=== PATIENT | male | born 1945 | race Caucasian/White ===

== ENCOUNTER 2020-02-17 12:30 | Emergency (ER) | payer MEDICARE, BC ==
[~2020-02-17] VITALS: Ht 160 cm; Wt 73.5 kg
--- NOTE | 2020-02-17 12:45 | NUR ---
ED Nurse Note: Pt ambulated to ED from home d/t multiple falls today at home. Pt is AOx4, denies any head trauma. Per pt he has hx of back surgery. Pt had a fall at the garage and bathroom. Pt arrived with bandages on bilateral forearms and stated, "he wants his bandages to be check and replaced." VSS, on RA, afebrile on triage.
[2020-02-17 12:50] VITALS: BP 145/74
[2020-02-17] MEDS ORDERED: Bacitracin Oint UD TOPIC ONE ×2 (13:00→13:15)
[2020-02-17] MEDS ORDERED: BACITRACIN15 GM TOPIC ×2 (14:01→14:20)
[2020-02-17 14:25] VITALS: BP 144/72
--- NOTE | 2020-02-17 14:25 | NUR ---
ER DISCHARGE NOTE: Pt is cleared to be discharged per ERMD, pt is aox4, on room air, with stable vital signs. pt was given dc and prescription instructions, pt was able to verbalize understanding, pt id band removed. pt is able to ambulate with steady gait. pt took all belongings.
--- NOTE | 2020-02-17 14:49 | Emergency Room Report ---
History of Present Illness General Chief Complaint: Multiple Trauma/Fall Source: Patient Present Illness HPI 74-year-old male presents with abrasions to his elbows status post fall today. States he had a mechanical fall in his garage. Denies hitting his head or LOC. States that he has history of frequent falls. Denies pain. States that he has very thin skin and he needs bandaging and wound care. Denies taking blood thinners. Denies any nausea vomiting. Denies any abdominal pain. Denies any back pain. No other aggravating relieving factors. 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 Patient History Past Medical History: none Past Surgical History: other - Back surgery Pertinent Family History: none Social History: Denies: smoking, alcohol use, drug use Immunizations: UTD Reviewed Nursing Documentation: PMH: Agreed; PSxH: Agreed Nursing Documentation-PMH Past Medical History: No History, Except For Review of Systems All Other Systems: negative except mentioned in HPI Physical Exam Vital Signs Date Time Temp Pulse Resp B/P (MAP) Pulse Ox O2 Delivery O2 Flow Rate FiO2 02/17/20 12:38 97.9 63 16 145/74 (97) 95 Room Air Sp02 EP Interpretation: reviewed, normal General Appearance: no apparent distress, alert, GCS 15, non-toxic Head: normocephalic Eyes: bilateral eye normal inspection, bilateral eye PERRL ENT: normal ENT inspection Neck: normal inspection Respiratory: normal inspection Cardiovascular #1: normal inspection Gastrointestinal: normal inspection Rectal: deferred Genitourinary: no CVA tenderness Musculoskeletal: back normal, normal range of motion, gait/station normal, non- tender Neurologic: alert, motor strength/tone normal, oriented x3, sensory intact, responsive, speech normal Psychiatric: judgement/insight normal, memory normal, mood/affect normal, no suicidal/homicidal ideation Skin: other - skin tears to bilateral elbows Lymphatic: normal inspection Medical Decision Making Diagnostic Impression: Primary Impression: Skin tear Additional Impression: Multiple injuries due to trauma ER Course Hospital Course 74-year-old male presents with skin tears to bilateral elbow status post fall. No pain Clinical course Patient placed on stretcher. After initial history exam reveals elderly male no acute distress. There are skin tears noted to both elbows. Full range of motion noted. No crepitus or bruising. No tenderness. Patient states that this happens often. History of frequent falls. Declines lab draw. Declines imaging including x-rays or CT head. Declines pain meds. Wounds cleaned. Bacitracin and dressing applied. Safe for discharge and close outpatient follow-up. States he has a PMD Diagnosis -skin tear, multiple injuries due to trauma Stable and discharged to home with prescription for bacitracin. wound Care instructions given. Followup with PMD. Return to ED if any signs of infection develop Last Vital Signs Date Time Temp Pulse Resp B/P (MAP) Pulse Ox O2 Delivery O2 Flow Rate FiO2 02/17/20 12:50 97.9 16 145/74 95 Room Air 02/17/20 12:50 63 Status: improved Disposition: HOME, SELF-CARE Condition: Stable Scripts Bacitracin (Bacitracin) 28.4 Gm Oint...g. 1 APPLIC TOPIC THREE TIMES A DAY, #28.4 GM Prov: Luciano Padilla MD 02/17/20 Patient Instructions: Skin Tear Care, [id number] Luciano Padilla MD Feb 17, 2020 14:49
== END 2020-02-17 14:25 | disposition home or self-care (01) ==
LOC: EMR 13:55
DX: S51.012A Laceration without foreign body of left elbow, initial encounter (principal); S51.011A Laceration without foreign body of right elbow, initial encounter; W19.XXXA Unspecified fall, initial encounter; Y92.094 Garage of other non-institutional residence as the place of occurrence of the external cause; Z91.81 History of falling
CPT/HCPCS: 99282

== ENCOUNTER → 2020-04-14 | Outpatient (CLI) | payer MEDICARE, BC ==
[~2020-04-14] MED LIST: BACITRACIN15 GM TOPIC
[2020-04-14 12:10] LABS: HEMATOCRIT 44.9 % (42.0-52.0); MEAN CORPUSCULAR VOLUME 93 FL (80-99); PLATELET COUNT 84 K/UL (150-450); RED BLOOD COUNT 4.84 M/UL (4.70-6.10); RED CELL DISTRIBUTION WIDTH 13.4 % (11.6-14.8); WHITE BLOOD COUNT 4.3 K/UL (4.8-10.8)
[2020-04-14 12:37] LABS: ALANINE AMINOTRANSFERASE 74 U/L (12-78); ALBUMIN 3.2 G/DL (3.4-5.0); ALBUMIN/GLOBULIN RATIO 1.1 (1.0-2.7); ALKALINE PHOSPHATASE 146 U/L (46-116); ANION GAP 6 mmol/L (5-15); ASPARTATE AMINO TRANSFERASE 40 U/L (15-37); BILIRUBIN,TOTAL 0.7 MG/DL (0.2-1.0); BLOOD UREA NITROGEN 40 mg/dL (7-18); CALCIUM 8.8 MG/DL (8.5-10.1); CARBON DIOXIDE 27 MMOL/L (21-32); CHLORIDE 109 MMOL/L (98-107); POTASSIUM 4.5 MMOL/L (3.5-5.1); SODIUM 142 MMOL/L (136-145)
--- NOTE | 2020-04-14 13:15 | Diagnostic Imaging Report ---
Indication: Abdominal pain and distention Technique: Boyer-scale and duplex images of the upper abdomen were obtained Comparison: Findings: Gallbladder is unremarkable, without stones, wall thickening, nor pericholecystic fluid. Sonographic Aguirre's sign is negative. Common bile duct measures 3 mm in diameter. No intrahepatic biliary ductal dilatation. Liver demonstrates some surface nodularity. It demonstrates coarsened echogenicity. No focal abnormality. Portal vein and hepatic veins are patent. Pancreas is unremarkable. The spleen is mildly enlarged, measuring 13.5 cm long axis dimension. Left kidney measures 10.4 cm in length. Right kidney measures 10.8 cm length. Both kidneys demonstrate normal echogenicity. There is no hydronephrosis. Cysts are seen in both kidneys. There may be a small calculus in the right renal sinus . Non-aneurysmal abdominal aorta . Impression: Coarsened hepatic echogenicity. Surface nodularity suggests cirrhotic change Splenomegaly Negative for gallstones or dilated bile ducts Possible right renal sinus nonobstructive calyceal calculus
== END | disposition home or self-care (01) ==
LOC: ULS 10:56
DX: R10.9 Unspecified abdominal pain (principal); R14.0 Abdominal distension (gaseous); R16.1 Splenomegaly, not elsewhere classified; N20.0 Calculus of kidney
CPT/HCPCS: 36415; 76700; 80053; 82105; 85007; 85025; 85610; 85730

== ENCOUNTER 2020-09-22 09:31 | Inpatient (IN) | payer MEDICARE, BC ==
[~2020-09-22] VITALS: Ht 162.6 cm; Wt 83.0 kg
[2020-09-22 09:52] VITALS: BP 127/49
--- NOTE | 2020-09-22 10:05 | NUR ---
ED Nurse Note: pt states he was reaching for something, fell and arm got caught on cabinet last night. pt states profuse bleeding last night. bleeding minimal on arrival pt states pain 6/10, refusing pain medication. pt presents with skin tear on R upper outer arm, extensive purple hematoma to R outer arm with swelling, deep laceration in R axillary region, skin tear, muscle and ligaments visible. pt able to move extremity with some difficulty and assistance. R shoulder pain with movement. pt resting in bed. IV in places. labs sent. pt placed on cardiac & O2 monitor continuously.
[2020-09-22] MEDS ORDERED: ceFAZolin sod 1 GM in NS 55 ML IVPB ONE (10:15)
[2020-09-22] MEDS ORDERED: Tetanus/Diptheria/Pertussis IM ONE (10:15)
--- NOTE | 2020-09-22 10:40 | Emergency Room Report ---
History of Present Illness General Chief Complaint: Shoulder Injury Source: Patient Present Illness HPI 74-year-old male presents for evaluation. States that he cut his arm yesterday while reaching for something and then his arm fell onto something wooden. Has a large cut under his axilla and to the right arm. Happened yesterday afternoon. Tetanus unknown. Denies any other injuries. Pain is dull, 6 out of 10, nonradiating. No other aggravating relieving factors. 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 Patient History Past Medical History: other - cancer Past Surgical History: none Pertinent Family History: none Social History: Denies: smoking, alcohol use, drug use Immunizations: UTD Reviewed Nursing Documentation: PMH: Agreed; PSxH: Agreed Nursing Documentation-PMH Past Medical History: No History, Except For Review of Systems All Other Systems: negative except mentioned in HPI Physical Exam Vital Signs Date Time Temp Pulse Resp B/P (MAP) Pulse Ox O2 Delivery O2 Flow Rate FiO2 09/22/20 09:43 98.4 99 18 153/132 (139) 98 Room Air Sp02 EP Interpretation: reviewed, normal General Appearance: no apparent distress, alert, GCS 15, non-toxic Head: normocephalic, atraumatic Eyes: bilateral eye normal inspection, bilateral eye PERRL ENT: hearing grossly normal, normal pharynx, no angioedema, normal voice Neck: full range of motion, supple/symm/no masses Respiratory: chest non-tender, lungs clear, normal breath sounds, speaking full sentences Cardiovascular #1: regular rate, rhythm, no edema Cardiovascular #2: 2+ carotid (R), 2+ carotid (L), 2+ radial (R), 2+ radial (L), 2+ dorsalis pedis (R), 2+ dorsalis pedis (L) Gastrointestinal: normal bowel sounds, non tender, soft, non-distended, no guarding, no rebound Rectal: deferred Genitourinary: normal inspection, no CVA tenderness Musculoskeletal: back normal, normal range of motion, gait/station normal, non- tender Neurologic: alert, motor strength/tone normal, oriented x3, sensory intact, responsive, speech normal Psychiatric: judgement/insight normal, memory normal, mood/affect normal, no suicidal/homicidal ideation Reflexes: 3+ bicep (R), 3+ bicep (L), 3+ tricep (R), 3+ tricep (L), 3+ knee (R), 3+ knee (L) Skin: other - 5cm laceration to R axilla. tissue exposed Lymphatic: no adenopathy Medical Decision Making Diagnostic Impression: Primary Impression: Subcutaneous air Qualified Codes: T79.7XXA - Traumatic subcutaneous emphysema, initial encounter Additional Impression: Laceration of axilla Qualified Codes: S41.111A - Laceration without foreign body of right upper arm, initial encounter ER Course Hospital Course 74-year-old male presents with bruising to right arm laceration to axilla after fall Differential diagnoses include: Cellulitis, abscess, fractire Clinical course Patient placed on stretcher. After initial history and physical I ordered Tdap, x-rays X-rays show no fracture but significant DJD to the right shoulder. There is significant amount of subcutaneous air in the arm and in the chest which is not explainable by a laceration alone. Concerning for bacterial infection. Wound irrigated. Partially closed. Broad-spectrum antibiotics given. Labs drawn labs reviewed - no leukocytosis, Hb/Hct stable, no electrolyte abnormalities. Dr Miller will see patient. Case discussed with Dr Mills and he agreed to accept the patient to his service for further care and support Diagnosis -subcutaneous air, laceration of axilla Patient admitted to floor in serious condition Laboratory Tests Test 09/22/20 09:50 09/22/20 12:40 White Blood Count 6.9 K/UL (4.8-10.8) Red Blood Count 4.63 M/UL (4.70-6.10) L Hemoglobin 14.0 G/DL (14.2-18.0) L Hematocrit 45.0 % (42.0-52.0) Mean Corpuscular Volume 97 FL (80-99) Mean Corpuscular Hemoglobin 30.2 PG (27.0-31.0) Mean Corpuscular Hemoglobin Concent 31.0 G/DL (32.0-36.0) L Red Cell Distribution Width 14.4 % (11.6-14.8) Platelet Count 123 K/UL (150-450) L Mean Platelet Volume 9.8 FL (6.5-10.1) Neutrophils (%) (Auto) 66.0 % (45.0-75.0) Lymphocytes (%) (Auto) 24.5 % (20.0-45.0) Monocytes (%) (Auto) 8.0 % (1.0-10.0) Eosinophils (%) (Auto) 0.9 % (0.0-3.0) Basophils (%) (Auto) 0.7 % (0.0-2.0) Prothrombin Time 10.7 SEC (9.30-11.50) Prothromb Time International Ratio 1.0 (0.9-1.1) Activated Partial Thromboplast Time 26 SEC (23-33) Sodium Level 143 MMOL/L (136-145) Potassium Level 4.9 MMOL/L (3.5-5.1) Chloride Level 110 MMOL/L (98-107) H Carbon Dioxide Level 26 MMOL/L (21-32) Anion Gap 7 mmol/L (5-15) Blood Urea Nitrogen 30 mg/dL (7-18) H Creatinine 0.7 MG/DL (0.55-1.30) Estimat Glomerular Filtration Rate > 60 mL/min (>60) Glucose Level 136 MG/DL (74-106) H Calcium Level 8.7 MG/DL (8.5-10.1) Total Bilirubin 1.2 MG/DL (0.2-1.0) H Direct Bilirubin 0.2 MG/DL (0.0-0.3) Aspartate Amino Transf (AST/SGOT) 63 U/L (15-37) H Alanine Aminotransferase (ALT/SGPT) 64 U/L (12-78) Alkaline Phosphatase 161 U/L (46-116) H Total Protein 6.1 G/DL (6.4-8.2) L Albumin 3.2 G/DL (3.4-5.0) L Globulin 2.9 g/dL Albumin/Globulin Ratio 1.1 (1.0-2.7) Lactic Acid Level 1.20 mmol/L (0.4-2.0) Other X-Ray Diagnostic Results Other X-Ray Diagnostic Results #1: X-Ray ordered: L shoulder # of Views/Limited Vs Complete: 3 View Indication: Pain EP Interpretation: Yes Interpretation: no dislocation, no fractures, other - subcutaneous air in tissue Impression: Other - subcutaneous air Electronically Signed by: Electronically signed by Luciano Padilla MD Other X-Ray Diagnostic Results #2: X-Ray ordered: L humerus # of Views/Limited Vs Complete: 2 View Indication: Pain EP Interpretation: Yes Interpretation: no dislocation, no soft tissue swelling, no fractures, other - Subcutaneous air Impression: Other - subutaneous air Electronically Signed by: Electronically signed by Luciano Padilla MD Last Vital Signs Date Time Temp Pulse Resp B/P (MAP) Pulse Ox O2 Delivery O2 Flow Rate FiO2 09/22/20 09:52 59 18 127/49 95 Room Air 09/22/20 09:43 98.4 Status: improved Disposition: ADMITTED INPATIENT Condition: Serious Referrals: [facility],REFERRING (PCP) Luciano Padilla MD Sep 22, 2020 10:40
[2020-09-22 10:57] VITALS: BP 129/51
[2020-09-22] MEDS ORDERED: Acetaminophen 500mg (ES) tab ORAL ONE (11:15)
[2020-09-22] MEDS ORDERED: Lidocaine 1% MPF 10mg/ml 5ml ONE (11:35)
[2020-09-22] MEDS ORDERED: Lidocaine 1% Plain 30 ml INJ ONE (11:45)
--- NOTE | 2020-09-22 12:13 | Diagnostic Imaging Report ---
Indications: Pain, status post trauma with laceration Technique: Two views of the right humerus Comparison: None Findings: There is a large soft tissue defect in the soft tissues anterolateral to the midshaft humerus. There is extensive gas within the soft tissues, which is circumferential in the upper arm, with gas seen dissecting into the axilla and right chest and upper abdominal wall. No definite acute fracture. No dislocation. There is severe degenerative change of the right shoulder, with extensive degenerative remodeling of the articular surfaces on both sides of the joint and severe narrowing of the right shoulder joint.; On Impression: Evidence of large soft tissue defect in the right arm presumably related to stated clinical history of laceration. Extensive gas within the soft tissues. While possibly due to gas from the penetrating trauma dissecting into the soft tissues, this is much more extensive than would be expected for such and the possibility of infection with a gas-forming organism should be considered. No definite acute bony trauma Extensive degenerative change of the right glenohumeral joint Critical value findings discussed by phone with Dr. Padilla at the time of interpretation
--- NOTE | 2020-09-22 12:14 | Diagnostic Imaging Report ---
Indication: Reason For Exam: PAIN Technique: 2 views of the right shoulder Comparison: none Findings: There is a large soft tissue defect in the soft tissues anterolateral to the midshaft humerus. There is extensive gas within the soft tissues, which is circumferential in the upper arm, with gas seen dissecting into the axilla and right chest and upper abdominal wall. No definite acute fracture. No dislocation. There is severe degenerative change of the right shoulder, with extensive degenerative remodeling of the articular surfaces on both sides of the joint and severe narrowing of the right shoulder joint. Impression: Evidence of large soft tissue defect in the right arm presumably related to stated clinical history of laceration. Extensive gas within the soft tissues. While possibly due to gas from the penetrating trauma dissecting into the soft tissues, this is much more extensive than would be expected for such and the possibility of infection with a gas-forming organism should be considered. No definite acute bony trauma Extensive degenerative change of the right glenohumeral joint Critical value findings discussed by phone with Dr. Padilla at the time of interpretation
[2020-09-22 12:18] LABS: ANION GAP 7 mmol/L (5-15); BLOOD UREA NITROGEN 30 mg/dL (7-18); CALCIUM 8.7 MG/DL (8.5-10.1); CARBON DIOXIDE 26 MMOL/L (21-32); CHLORIDE 110 MMOL/L (98-107); CREATININE 0.7 MG/DL (0.55-1.30); POTASSIUM 4.9 MMOL/L (3.5-5.1); SODIUM 143 MMOL/L (136-145)
[2020-09-22 12:19] LABS: BASOPHILS % (AUTO) 0.7 % (0.0-2.0); EOSINOPHILS % (AUTO) 0.9 % (0.0-3.0); LYMPHOCYTES % (AUTO) 24.5 % (20.0-45.0); MEAN CORPUSCULAR VOLUME 97 FL (80-99); PLATELET COUNT 123 K/UL (150-450); RED BLOOD COUNT 4.63 M/UL (4.70-6.10); RED CELL DISTRIBUTION WIDTH 14.4 % (11.6-14.8); WHITE BLOOD COUNT 6.9 K/UL (4.8-10.8)
[2020-09-22 12:28] LABS: ALANINE AMINOTRANSFERASE 64 U/L (12-78); ALBUMIN 3.2 G/DL (3.4-5.0); ALBUMIN/GLOBULIN RATIO 1.1 (1.0-2.7); ALKALINE PHOSPHATASE 161 U/L (46-116); ASPARTATE AMINO TRANSFERASE 63 U/L (15-37); BILIRUBIN,TOTAL 1.2 MG/DL (0.2-1.0)
[2020-09-22 12:31] LABS: BILIRUBIN,DIRECT 0.2 MG/DL (0.0-0.3)
--- NOTE | 2020-09-22 12:49 | NUR ---
ED Nurse Note: pt blood drawn & sent- cultures, lactic, type & cross for blood type. pt denies pain in arm. pt refusing pain medication. pt only states pain when moving.
[2020-09-22] MEDS ORDERED: Vancomycin 1 GM in NS 275 ML IVPB ONE (13:30)
--- NOTE | 2020-09-22 14:49 | NUR ---
ED Nurse Note: called report to RN.
[2020-09-22 14:51] VITALS: BP 137/61
--- NOTE | 2020-09-22 15:20 | NUR ---
NURSE NOTES: Patient brought down to [address] safely via gurney into room 409-2. Patient is noted to have right arm and right axilla laceration and redness. Patient stable condition, no pressure ulcers noted, able to state name, , date and current events, able to verbalize needs well. Breathing is even and unlabored, calm and friendly demeanor, states no allergies except to silk tape, v/s WNL.
--- NOTE | 2020-09-22 15:44 | NUR ---
NURSE NOTES: Notified Dr. Mills for admission orders. Awaiting response.
[2020-09-22 16:00] VITALS: BP 142/64
[2020-09-22] MEDS: Morphine Sulfate 2mg/ml Inj(IV/IM USE ONLY) IVP PRN (16:58)
--- NOTE | 2020-09-22 17:14 | History and Physical Report ---
DATE OF ADMISSION: 09/22/2020 HISTORY OF PRESENT ILLNESS: This is a 74-year-old male came to the emergency room after a fall and found has had a cellulitis on the right axilla where he fell down and has wound and was sutured. Patient has multiple trauma injuries and laceration on axilla. He denies any fever or chills. PAST MEDICAL HISTORY: Significant for insomnia, BPH. MEDICATIONS: See the list. ALLERGIES: NKA. FAMILY HISTORY: Noncontributory. SOCIAL HISTORY: Lives at home by himself. He walks with a walker at home. REVIEW OF SYSTEMS: Generalized weakness, pain on right axilla and right shoulder. Unable to move. PHYSICAL EXAMINATION: VITAL SIGNS: Blood pressure is 137/61, pulse 58, respirations 18, temperature 98.4. HEENT: NAD. CHEST: Bilaterally clear. CARDIOVASCULAR: Regular rhythm. No gallop. No murmur. ABDOMEN: Soft. EXTREMITIES: Right shoulder tenderness. Right axilla has sutures and warm on touch. GENITOURINARY: Deferred. LABORATORY DATA: White count 6.9, hemoglobin 14, hematocrit 45, platelets are 123. Chemistry panel, sodium 143, potassium 4.9, BUN 30, creatinine 0.7, glucose is 136. LFTs are slightly alkaline phosphatase is high. Albumin is 3.2. Coagulation, INR 1. IMAGING: Patient had shoulder x-ray showing no definite acute bony trauma. Extensive degenerative changes, right glenohumeral joint. Evidence of large soft tissue defect in the right arm, presumably related to stated clinical history of laceration. Extensive gas within the soft tissues possibly due to gas from penetrating trauma. X-ray of humerus, no definite acute bony trauma. ASSESSMENT: 1. Fall. 2. Cellulitis on the right axilla. 3. Wound. 4. Pain. 5. BPH. PLAN: We will currently add morphine. IV antibiotic. Wound care. Continue current treatment. Continue home medications. Continue Flomax. Kelby Mills M.D. DR: BLANCA JOB#: [id number] CC:
[2020-09-22] MEDS ORDERED: cefTRIAXone 1 GM in D5W 55 ML IVPB SCH (18:00)
--- NOTE | 2020-09-22 18:07 | Consultation ---
History of Present Illness General Date patient seen: Sep 22, 2020 Reason for Hospitalization: Shoulder Injury Present Illness HPI This is a very pleasant 74-year-old male who was at home yesterday where he sustained a fall and laceration against a wooden cabinet door in his kitchen on his right axilla and arm. Did not note much of it but felt some pain today and came in for evaluation when in the emergency room and identified to have an open wound in the right axilla. Wound was washed out and closed primarily with nylon sutures and films were taken identifying subcutaneous air and therefore patient was admitted further care and management. Surgery was called to eval and assist with care. Patient seen, patient evaluated, chart reviewed. Patient states that he feels well does have some pain but overall tolerable. States that he has shoulder issues for years he has limited mobility though he can move his arm . No nausea vomiting fever chills. Labs noted. Imaging reviewed. Allergies: Uncoded Allergies: Silk tape (Allergy, Mild, Hives, 09/22/20) COVID-19 Screening Contact w/high risk pt: No Recent Travel to affected area: No Experienced COVID-19 symptoms?: No Medication History Scheduled Bacitracin (Bacitracin), 1 APPLIC TOPIC THREE TIMES A DAY Patient History History Provided By: Patient Healthcare decision maker N Resuscitation status Advanced Directive on File Past Medical/Surgical History Past Medical/Surgical History: (1) Skin tear (2) Multiple injuries due to trauma (3) Subcutaneous air (4) Laceration of axilla Review of Systems Review of Symptoms General ROS: no weight loss or fever Psychological ROS: no depression or mood changes, no memory loss Ophthalmic ROS: no visual changes or eye irritation ENT ROS: no nasal congestion, hearing loss, dizziness Allergy and Immunology ROS: no allergic symptoms or urticaria Hematological and Lymphatic ROS: no swollen glands, unusual bleeding or bruising Endocrine ROS: no polyuria, polydipsia, weight changes, temperature intolerance Respiratory ROS: no cough, shortness of breath, or wheezing Cardiovascular ROS: no chest pain or dyspnea on exertion Gastrointestinal ROS: denies abdominal pain, bright red blood in stool. Musculoskeletal ROS: no myalgias or arthralgias Neurological ROS: no TIA or stroke symptoms Dermatological ROS: no new or changing skin lesions, rashes or pruritis Physical Exam Physical Exam General appearance: alert, cooperative, no distress, appears stated age Head: Normocephalic, without obvious abnormality, atraumatic Eyes: conjunctivae/corneas clear. PERRL, EOM's intact. Fundi benign Throat: Lips, mucosa, and tongue normal. Teeth and gums normal Neck: supple, symmetrical, trachea midline, no adenopathy, thyroid: not enlarged, symmetric, no tenderness/mass/nodules, no carotid bruit and no JVD Lungs: clear to auscultation bilaterally Heart: regular rate and rhythm, S1, S2 normal, no murmur, click, rub or gallop Abdomen: soft, non-tender. Bowel sounds normal. No masses, no organomegaly Extremities: extremities right arm with edema and recent trauma bruising laceration axilla right Pulses: 2+ and symmetric Skin: Skin see below Neurologic: Grossly normal Last 24 Hour Vital Signs Date Time Temp Pulse Resp B/P (MAP) Pulse Ox O2 Delivery O2 Flow Rate FiO2 09/22/20 16:00 97.3 60 18 142/64 (90) 96 09/22/20 15:46 Room Air 09/22/20 14:51 58 18 137/61 100 Room Air 09/22/20 10:57 51 12 129/51 95 Room Air 09/22/20 09:52 59 18 127/49 95 Room Air 09/22/20 09:43 98.4 99 18 153/132 (139) 98 Room Air Laboratory Tests Test 09/22/20 09:50 09/22/20 12:40 White Blood Count 6.9 K/UL (4.8-10.8) Red Blood Count 4.63 M/UL (4.70-6.10) L Hemoglobin 14.0 G/DL (14.2-18.0) L Hematocrit 45.0 % (42.0-52.0) Mean Corpuscular Volume 97 FL (80-99) Mean Corpuscular Hemoglobin 30.2 PG (27.0-31.0) Mean Corpuscular Hemoglobin Concent 31.0 G/DL (32.0-36.0) L Red Cell Distribution Width 14.4 % (11.6-14.8) Platelet Count 123 K/UL (150-450) L Mean Platelet Volume 9.8 FL (6.5-10.1) Neutrophils (%) (Auto) 66.0 % (45.0-75.0) Lymphocytes (%) (Auto) 24.5 % (20.0-45.0) Monocytes (%) (Auto) 8.0 % (1.0-10.0) Eosinophils (%) (Auto) 0.9 % (0.0-3.0) Basophils (%) (Auto) 0.7 % (0.0-2.0) Prothrombin Time 10.7 SEC (9.30-11.50) Prothromb Time International Ratio 1.0 (0.9-1.1) Activated Partial Thromboplast Time 26 SEC (23-33) Sodium Level 143 MMOL/L (136-145) Potassium Level 4.9 MMOL/L (3.5-5.1) Chloride Level 110 MMOL/L (98-107) H Carbon Dioxide Level 26 MMOL/L (21-32) Anion Gap 7 mmol/L (5-15) Blood Urea Nitrogen 30 mg/dL (7-18) H Creatinine 0.7 MG/DL (0.55-1.30) Estimat Glomerular Filtration Rate > 60 mL/min (>60) Glucose Level 136 MG/DL (74-106) H Calcium Level 8.7 MG/DL (8.5-10.1) Total Bilirubin 1.2 MG/DL (0.2-1.0) H Direct Bilirubin 0.2 MG/DL (0.0-0.3) Aspartate Amino Transf (AST/SGOT) 63 U/L (15-37) H Alanine Aminotransferase (ALT/SGPT) 64 U/L (12-78) Alkaline Phosphatase 161 U/L (46-116) H Total Protein 6.1 G/DL (6.4-8.2) L Albumin 3.2 G/DL (3.4-5.0) L Globulin 2.9 g/dL Albumin/Globulin Ratio 1.1 (1.0-2.7) Lactic Acid Level 1.20 mmol/L (0.4-2.0) Height (Feet): 5 Height (Inches): 4.00 Weight (Pounds): 165 Medications Current Medications Medications (Trade) Dose Ordered Sig/Mary Route PRN Reason Start Time Stop Time Status Last Admin Dose Admin Acetaminophen (Tylenol) 650 mg Q4H PRN ORAL Mild Pain (Pain Scale 1-3) 09/22/20 16:00 10/22/20 15:59 Ceftriaxone Sodium 1 gm/ Dextrose 55 ml @ 110 mls/hr Q24H IVPB 09/22/20 18:00 09/29/20 17:59 Diazepam (Valium) 5 mg HSPRN PRN ORAL Insomnia 09/22/20 16:00 09/29/20 15:59 Morphine Sulfate (Morphine Sulfate) 1 mg Q6H PRN IVP For pain 4-10 09/22/20 16:00 09/29/20 15:59 09/22/20 16:58 Tamsulosin HCl (Flomax) 0.4 mg BEDTIME ORAL 09/22/20 21:00 10/22/20 20:59 Assessment/Plan Problem List: (1) Subcutaneous air ICD Codes: T79.7XXA - Traumatic subcutaneous emphysema, initial encounter SNOMED: 2874203 Qualifiers: Qualified Codes: T79.7XXA - Traumatic subcutaneous emphysema, initial encounter (2) Laceration of axilla Assessment & Plan: 74-year-old male right axilla laceration sustained at home after an injury with a kitchen cabinet wooden fall as he was trying to grab something. No nausea vomiting fever chills. Labs okay no leukocytosis no shift. Laceration was washed out thoroughly in emergency department by ED physician and closed primarily with nylon sutures interrupted. Wound evaluated bedside there are some bruising noted to the arm some superficial laceration on the lateral aspect of the medial axilla on the right there is a approximately 8 to 10 cm laceration which is now closed. No drainage no pus no cellulitis no erythema no warmth. Tender on palpation otherwise benign looking. Subcutaneous edema likely from the trauma though I do agree with the radiologist is fairly extensive for a simple fall. Patient initiated on IV antibiotics and recommend admission for monitoring over the course of 24 hours. We will keep a close eye on the wound. Personally wash the wound and place dressings for the patient the bedside after evaluation. We will continue monitoring and discharge when safe. Outpatient follow-up in office for suture removal planned. Thank you ICD Codes: S41.119A - Laceration without foreign body of unspecified upper arm, initial encounter SNOMED: 365842710 Qualifiers: Qualified Codes: S41.111A - Laceration without foreign body of right upper arm, initial encounter (3) Skin tear SNOMED: 814496887 (4) Multiple injuries due to trauma ICD Codes: T07.XXXA - Unspecified multiple injuries, initial encounter SNOMED: 417732385 Torsten Miller Sep 22, 2020 18:07
[2020-09-22] MEDS ORDERED: HYDROcodone/Acetamin 5/325 tab ORAL PRN (18:15)
[2020-09-22 20:00] VITALS: BP 106/56
[2020-09-22] MEDS: Tamsulosin 0.4mg cap ORAL SCH (20:12)
[2020-09-23] VITALS: BP 106/42
[2020-09-23 04:00] VITALS: BP 98/58
[2020-09-23] MEDS: Morphine Sulfate 2mg/ml Inj(IV/IM USE ONLY) IVP PRN (04:26)
--- NOTE | 2020-09-23 06:04 | NUR ---
NURSE HAND-OFF: Important Events on Shift:low BP with asymptomatic, dressing changed Patient Status: Diet: reg Pending Orders: Pending Results/Labs: Pending MD notification: Latest Vital Signs: Temperature 97.9 , Pulse 64 , B/P 98 /58 , Respiratory Rate 20 , O2 SAT 92 , Room Air, O2 Flow Rate . Vital Sign Comment: [] Latest Malone Fall Score: 65 Fall Risk: High Risk Safety Measures: Call light Within Reach, Bed Alarm Zone 1, Side Rails Side Rails x2, Bed position Low and Locked. Fall Precautions: Yellow Socks Yellow Gown Door Sign Patient Fall Education Addendum: 09/23/20 at 0741 by JOSE CARROLL RN RN Report given to Urmila
[2020-09-23 06:44] LABS: HEMATOCRIT 35.7 % (42.0-52.0); HEMOGLOBIN 11.9 G/DL (14.2-18.0); MEAN CORPUSCULAR VOLUME 93 FL (80-99); PLATELET COUNT 89 K/UL (150-450); RED BLOOD COUNT 3.83 M/UL (4.70-6.10); RED CELL DISTRIBUTION WIDTH 15.2 % (11.6-14.8); WHITE BLOOD COUNT 5.1 K/UL (4.8-10.8)
--- NOTE | 2020-09-23 06:50 | NUR ---
CASE MANAGEMENT:REVIEW 74YR OLD, WHEELCHAIR BOUND, MALE PRESENTED TO ER CC: RT SHOULDER INJURY PMH: CIRRHOSIS, SKULL FLAP. SKIN CANCER, CLL, SPINAL SURGERY SI: RT SHOULDER CELLULITIS. SUBCUTANEOUS AIR 98.5 99 18 153/132 98% ON RA PLT-123 BUN+30 TBILI+1.2 AST+63 IS: TdP IM X1 IV ANCEF X1 TYLENOL PO X1 1L NS BOLUS LIDOCAINE INJ BLOOD CX XRAY HUMERUS AND SHOULDER : TO MED/SURG DCP: FROM HOME
[2020-09-23 07:21] LABS: ALANINE AMINOTRANSFERASE 45 U/L (12-78); ALBUMIN 2.5 G/DL (3.4-5.0); ALKALINE PHOSPHATASE 127 U/L (46-116); ANION GAP 7 mmol/L (5-15); ASPARTATE AMINO TRANSFERASE 37 U/L (15-37); BLOOD UREA NITROGEN 22 mg/dL (7-18); CALCIUM 8.2 MG/DL (8.5-10.1); CARBON DIOXIDE 25 MMOL/L (21-32); CHLORIDE 113 MMOL/L (98-107); CREATININE 0.7 MG/DL (0.55-1.30); POTASSIUM 4.4 MMOL/L (3.5-5.1); SODIUM 145 MMOL/L (136-145)
[2020-09-23 07:42] LABS: BILIRUBIN,TOTAL 0.7 MG/DL (0.2-1.0)
--- NOTE | 2020-09-23 07:45 | NUR ---
NURSE NOTES: Patient alert x4; on room air, no sing of distress and shortness of breath; no sing of chest pain; IV Left-Wrist flushes well; Right-Axillary dressing soaked and wet with blood drainage, will change the dressing as ordered; Urinal within reach; bilateral Lower extremities edematous; side rails up x2, breaks engaged, bed at lowest position; call light within reach; will keep monitoring.
[2020-09-23 08:00] VITALS: BP 107/55
[2020-09-23] MEDS: Docusate 100mg cap ORAL SCH ×2 (08:48→17:26)
--- NOTE | 2020-09-23 11:05 | General Progress Note ---
Subjective Date patient seen: Sep 23, 2020 Constitutional: Reports: weakness HEENT: Reports: no symptoms Cardiovascular: Reports: no symptoms Respiratory: Reports: no symptoms Gastrointestinal/Abdominal: Reports: no symptoms Genitourinary: Reports: no symptoms Neurologic/Psychiatric: Reports: no symptoms Endocrine: Reports: no symptoms Allergies: Uncoded Allergies: Silk tape (Allergy, Mild, Hives, 09/22/20) Subjective in bed weakness unsteadiy gait Objective Last 24 Hour Vital Signs Date Time Temp Pulse Resp B/P (MAP) Pulse Ox O2 Delivery O2 Flow Rate FiO2 09/23/20 09:00 Room Air 09/23/20 08:00 97.3 67 20 107/55 (72) 98 09/23/20 04:00 97.9 64 20 98/58 (71) 92 09/23/20 00:00 97.3 65 20 106/42 (63) 93 09/22/20 21:00 Room Air 09/22/20 20:00 98.3 68 18 106/56 (73) 96 09/22/20 16:00 97.3 60 18 142/64 (90) 96 09/22/20 15:46 Room Air 09/22/20 14:51 58 18 137/61 100 Room Air Intake and Output 09/22/20 09/23/20 19:00 07:00 Intake Total 600 ml Output Total 600 ml Balance 600 ml -600 ml Intake Oral 600 ml Output Urine Total 600 ml # Bowel Movements 1 Laboratory Tests 09/22/20 12:40: Lactic Acid Level 1.20 09/23/20 05:20: Lactic Acid Level 0.50, White Blood Count 5.1, Red Blood Count 3.83L, Hemoglobin 11.9L, Hematocrit 35.7L, Mean Corpuscular Volume 93, Mean Corpuscular Hemoglobin 31.1H, Mean Corpuscular Hemoglobin Concent 33.4, Red Cell Distribution Width 15.2H, Platelet Count 89L, Mean Platelet Volume 8.1, Neutrophils (%) (Auto) , Lymphocytes (%) (Auto) , Monocytes (%) (Auto) , Eosinophils (%) (Auto) , Basophils (%) (Auto) , Differential Total Cells Counted 100, Neutrophils % (Manual) 70, Lymphocytes % (Manual) 22, Monocytes % (Manual) 7, Eosinophils % (Manual) 0, Basophils % (Manual) 1, Band Neutrophils 0, Platelet Estimate DecreasedL, Platelet Morphology Normal, Anisocytosis 1+, Erythrocyte Sedimentat ion Rate 10, Prothrombin Time 10.9, Prothromb Time International Ratio 1.0, Activated Partial Thromboplast Time 28, Sodium Level 145, Potassium Level 4.4, Chloride Level 113H, Carbon Dioxide Level 25, Anion Gap 7, Blood Urea Nitrogen 22H, Creatinine 0.7, Estimat Glomerular Filtration Rate > 60, Glucose Level 94, Calcium Level 8.2L, Total Bilirubin 0.7, Aspartate Amino Transf (AST/SGOT) 37, Alanine Aminotransferase (ALT/SGPT) 45, Alkaline Phosphatase 127H, C-Reactive Protein, Quantitative 2.4H, Total Protein 4.9L, Albumin 2.5L, Globulin 2.4, Albumin/Globulin Ratio 1.0 Height (Feet): 5 Height (Inches): 4.00 Weight (Pounds): 183 General Appearance: alert EENT: PERRL/EOMI Neck: non-tender, supple Cardiovascular: normal rate Respiratory/Chest: lungs clear Abdomen: soft Pelvis: normal rectal exam Genitourinary/Rectal: normal genital exam Extremities: swelling, other - rt axillary abscess Taz Mills MD Sep 23, 2020 11:05
--- NOTE | 2020-09-23 11:09 | General Progress Note ---
Subjective Allergies: Uncoded Allergies: Silk tape (Allergy, Mild, Hives, 09/22/20) Subjective in bed weakness unsteadiy gait Objective Last 24 Hour Vital Signs Date Time Temp Pulse Resp B/P (MAP) Pulse Ox O2 Delivery O2 Flow Rate FiO2 09/23/20 09:00 Room Air 09/23/20 08:00 97.3 67 20 107/55 (72) 98 09/23/20 04:00 97.9 64 20 98/58 (71) 92 09/23/20 00:00 97.3 65 20 106/42 (63) 93 09/22/20 21:00 Room Air 09/22/20 20:00 98.3 68 18 106/56 (73) 96 09/22/20 16:00 97.3 60 18 142/64 (90) 96 09/22/20 15:46 Room Air 09/22/20 14:51 58 18 137/61 100 Room Air Intake and Output 09/22/20 09/23/20 19:00 07:00 Intake Total 600 ml Output Total 600 ml Balance 600 ml -600 ml Intake Oral 600 ml Output Urine Total 600 ml # Bowel Movements 1 Laboratory Tests 09/22/20 12:40: Lactic Acid Level 1.20 09/23/20 05:20: Lactic Acid Level 0.50, White Blood Count 5.1, Red Blood Count 3.83L, Hemoglobin 11.9L, Hematocrit 35.7L, Mean Corpuscular Volume 93, Mean Corpuscular Hemoglobin 31.1H, Mean Corpuscular Hemoglobin Concent 33.4, Red Cell Distribution Width 15.2H, Platelet Count 89L, Mean Platelet Volume 8.1, Neutrophils (%) (Auto) , Lymphocytes (%) (Auto) , Monocytes (%) (Auto) , Eosinophils (%) (Auto) , Basophils (%) (Auto) , Differential Total Cells Counted 100, Neutrophils % (Manual) 70, Lymphocytes % (Manual) 22, Monocytes % (Manual) 7, Eosinophils % (Manual) 0, Basophils % (Manual) 1, Band Neutrophils 0, Platelet Estimate DecreasedL, Platelet Morphology Normal, Anisocytosis 1+, Erythrocyte Sedimentation Rate 10, Prothrombin Time 10.9, Prothromb Time International Ratio 1.0, Activated Partial Thromboplast Time 28, Sodium Level 145, Potassium Level 4.4, Chloride Level 113H, Carbon Dioxide Level 25, Anion Gap 7, Blood Urea Nitrogen 22H, Creatinine 0.7, Estimat Glomerular Filtration Rate > 60, Glucose Level 94, Calcium Level 8.2L, Total Bilirubin 0.7, Aspartate Amino Transf (AST/SGOT) 37, Alanine Aminotransferase (ALT/SGPT) 45, Alkaline Phosphatase 127H , C-Reactive Protein, Quantitative 2.4H, Total Protein 4.9L, Albumin 2.5L, Globulin 2.4, Albumin/Globulin Ratio 1.0 Height (Feet): 5 Height (Inches): 4.00 Weight (Pounds): 183 Objective doing ok Assessment/Plan Status: doing well Assessment/Plan: cellilitis rt axilla infected rt axillary wound fall unseady gait weakness dehydration iv abx surgery eval pt/ot Taz Mills MD Sep 23, 2020 11:09
--- NOTE | 2020-09-23 11:20 | NUR ---
NURSE NOTES: Linda from [facility] reported that patient's Blood Culture is Gram positive Cocci in Cluster; MD Miller is aware.
--- NOTE | 2020-09-23 11:46 | NUR ---
P.T Note: P.T evaluation completed and tx initiated initiated. Please refer to P.T evaluation for current functional status.
--- NOTE | 2020-09-23 11:59 | Surgery Progress Note ---
Surgery Progress Note Subjective Additional Comments Patient seen and examined at bedside. No acute events. Doing well. Afebrile hemodynamic stable labs noted. Blood cultures resulted tentatively positive ID consulted discussed with PCP Objective Last 24 Hour Vital Signs Date Time Temp Pulse Resp B/P (MAP) Pulse Ox O2 Delivery O2 Flow Rate FiO2 09/23/20 09:00 Room Air 09/23/20 08:00 97.3 67 20 107/55 (72) 98 09/23/20 04:00 97.9 64 20 98/58 (71) 92 09/23/20 00:00 97.3 65 20 106/42 (63) 93 09/22/20 21:00 Room Air 09/22/20 20:00 98.3 68 18 106/56 (73) 96 09/22/20 16:00 97.3 60 18 142/64 (90) 96 09/22/20 15:46 Room Air 09/22/20 14:51 58 18 137/61 100 Room Air I&O Intake and Output 09/22/20 09/23/20 19:00 07:00 Intake Total 600 ml Output Total 600 ml Balance 600 ml -600 ml Intake Oral 600 ml Output Urine Total 600 ml # Bowel Movements 1 Dressing: saturated Wound: clean Cardiovascular: RSR Respiratory: clear Abdomen: soft, flat, non-tender, present bowel sounds Extremities: edema, tenderness, no cyanosis Laboratory Tests Test 09/22/20 12:40 09/23/20 05:20 Lactic Acid Level 1.20 mmol/L (0.4-2.0) 0.50 mmol/L (0.4-2.0) White Blood Count 5.1 K/UL (4.8-10.8) Red Blood Count 3.83 M/UL (4.70-6.10) L Hemoglobin 11.9 G/DL (14.2-18.0) L Hematocrit 35.7 % (42.0-52.0) L Mean Corpuscular Volume 93 FL (80-99) Mean Corpuscular Hemoglobin 31.1 PG (27.0-31.0) H Mean Corpuscular Hemoglobin Concent 33.4 G/DL (32.0-36.0) Red Cell Distribution Width 15.2 % (11.6-14.8) H Platelet Count 89 K/UL (150-450) L Mean Platelet Volume 8.1 FL (6.5-10.1) Neutrophils (%) (Auto) % (45.0-75.0) Lymphocytes (%) (Auto) % (20.0-45.0) Monocytes (%) (Auto) % (1.0-10.0) Eosinophils (%) (Auto) % (0.0-3.0) Basophils (%) (Auto) % (0.0-2.0) Differential Total Cells Counted 100 Neutrophils % (Manual) 70 % (45-75) Lymphocytes % (Manual) 22 % (20-45) Monocytes % (Manual) 7 % (1-10) Eosinophils % (Manual) 0 % (0-3) Basophils % (Manual) 1 % (0-2) Band Neutrophils 0 % (0-8) Platelet Estimate Decreased L Platelet Morphology Normal Anisocytosis 1+ Erythrocyte Sedimentation Rate 10 MM/HR (0-20) Prothrombin Time 10.9 SEC (9.30-11.50) Prothromb Time International Ratio 1.0 (0.9-1.1) Activated Partial Thromboplast Time 28 SEC (23-33) Sodium Level 145 MMOL/L (136-145) Potassium Level 4.4 MMOL/L (3.5-5.1) Chloride Level 113 MMOL/L (98-107) H Carbon Dioxide Level 25 MMOL/L (21-32) Anion Gap 7 mmol/L (5-15) Blood Urea Nitrogen 22 mg/dL (7-18) H Creatinine 0.7 MG/DL (0.55-1.30) Estimat Glomerular Filtration Rate > 60 mL/min (>60) Glucose Level 94 MG/DL (74-106) Calcium Level 8.2 MG/DL (8.5-10.1) L Total Bilirubin 0.7 MG/DL (0.2-1.0) Aspartate Amino Transf (AST/SGOT) 37 U/L (15-37) Alanine Aminotransferase (ALT/SGPT) 45 U/L (12-78) Alkaline Phosphatase 127 U/L (46-116) H C-Reactive Protein, Quantitative 2.4 mg/dL (0.00-0.90) H Total Protein 4.9 G/DL (6.4-8.2) L Albumin 2.5 G/DL (3.4-5.0) L Globulin 2.4 g/dL Albumin/Globulin Ratio 1.0 (1.0-2.7) Plan Problems: (1) Subcutaneous air (2) Laceration of axilla Assessment & Plan: 74-year-old male right axilla laceration sustained at home after an injury with a kitchen cabinet wooden fall as he was trying to grab something. No nausea vomiting fever chills. Labs okay no leukocytosis no shift. Laceration was washed out thoroughly in emergency department by ED physician and closed primarily with nylon sutures interrupted. Wound evaluated bedside there are some bruising noted to the arm some superficial laceration on the lateral aspect of the medial axilla on the right there is a approximately 8 to 10 cm laceration which is now closed. No drainage no pus no cellulitis no erythema no warmth. Tender on palpation otherwise benign looking. Subcutaneous edema likely from the trauma though I do agree with the radiologist is fairly extensive for a simple fall. Patient initiated on IV antibiotics and recommend admission for monitoring over the course of 24 hours. We will keep a close eye on the wound. Personally wash the wound and place dressings for the patient the bedside after evaluation. We will continue monitoring and discharge when safe. Outpatient follow-up in office for suture removal planned. Thank you Labs okay exam stable dressing is being changed. Blood cultures noted infectious disease input pending (3) Skin tear (4) Multiple injuries due to trauma Torsten Miller Sep 23, 2020 11:59
[2020-09-23 12:00] VITALS: BP 134/64
--- NOTE | 2020-09-23 12:26 | NUR ---
NURSE NOTES: I received order from MD Davis, for a repeat 2 Bottle Blood Culture; order carried out as order given;
--- NOTE | 2020-09-23 13:29 | Consultation ---
DATE OF CONSULTATION: 09/23/2020 INFECTIOUS DISEASES CONSULTATION CONSULTING PHYSICIAN: Lucinda Gray MD REFERRING PHYSICIAN: Torsten Miller MD. REASON FOR CONSULTATION: Bacteremia. HISTORY OF PRESENTING ILLNESS: This is a 74-year-old gentleman with history of skin cancer on his head as well as CLL who comes in after a fall and laceration on a wooden cabinet door on his right axilla and arm. He comes in with some pain. He was found to be bacteremic and an Infectious Diseases consultation has been obtained for antibiotics. PAST MEDICAL HISTORY: 1. History of benign prostatic hypertrophy. 2. History of CLL. 3. History of skin cancer on his head, status post craniotomy and skin flap placement with a metal plate as well. SOCIAL HISTORY: He used to be a smoker, he does not smoke anymore. He used to drink alcohol, he does not drink anymore. He smokes marijuana. FAMILY HISTORY: Positive for breast cancer in his sister. REVIEW OF SYSTEMS: RESPIRATORY: No fever, chills, cough, shortness of breath. No chest pain. CARDIAC: No chest pain. No palpitation. No dizziness. No syncope. GASTROINTESTINAL: No nausea. No vomiting. No abdominal pain or diarrhea. MUSCULOSKELETAL: He complains of pain. MEDICATIONS: As an inpatient, he is on docusate, tamsulosin, [place], ceftriaxone, morphine, Tylenol, Valium. ALLERGIES: He is allergic to silk tape. PHYSICAL EXAMINATION: VITAL SIGNS: Temperature 97.3, T-max of 98.4, pulse of 67, respiratory rate 20, blood pressure 107/55, O2 saturation of 98% on room air. HEENT: Pupils equally reactive to light and accommodation. Mouth appears clean without thrush. NECK: Supple. No adenopathy. No JVD. CARDIOVASCULAR: Regular rate and rhythm. No murmurs. LUNGS: Clear to auscultation bilaterally. No crackles. No wheezes. ABDOMEN: Soft and nontender. No organomegaly. EXTREMITIES: No cyanosis. No clubbing. Edema noted bilaterally with bilateral leg erythema. Right axillary erythema noted. LABORATORY AND DIAGNOSTIC DATA: White count 5.1, hemoglobin 11.9, hematocrit 35.7, MCV 93, platelet count of 89. Sodium 145, potassium 4.4, chloride 113, bicarb 25, BUN 22, creatinine 0.7, glucose of 94, calcium 8.2. Total bilirubin 0.7, AST 37, ALT 45, alkaline phosphatase 127. C-reactive protein 2.4. Total protein 4.9, albumin 2.5. Blood cultures growing gram-positive cocci in clusters. Shoulder x-ray showed large soft tissue defect in the right arm, extensive gas within the soft tissues. No bony trauma. 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 ASSESSMENT: This is a 74-year-old gentleman with history of CLL as well as skin cancer on his head status post resection and flap placement who comes in after a fall with laceration in the right axilla and is found to have. 1. Gram-positive sepsis. 2. Right axillary cellulitis. 3. Bilateral leg cellulitis. 4. History of CLL. 5. History of skin cancer on his head, status post craniotomy and flap placement. PLAN: 1. Discontinue ceftriaxone. 2. We will start the patient on IV vancomycin and cefepime. 3. We will follow up cultures and adjust antibiotics accordingly. I would like to thank, Dr. Miller, for this consultation. Lucinda Gray M.D. DR: [place] JOB#: [id number] CC: Torsten Miller MD
[2020-09-23] MEDS: Cefepime HCl 2 GM in D5W 55 ML IVPB SCH ×2 (14:17→23:34)
[2020-09-23] MEDS ORDERED: Vancomycin 1 GM in NS 275 ML IVPB SCH (14:30)
[2020-09-23 16:00] VITALS: BP 113/60
--- NOTE | 2020-09-23 16:58 | NUR ---
NURSE NOTES: Primary RN asked charge nurse to call Dr. Mlils to change diet consistency to regular per patient.Patient is on [facility]. soft chopped diet. RN assessed patient. Patient has full teeth,no difficulties of swallowing liquid, patient is alert and oriented x4.RN informed Dr. Mills and relayed patient's request with new order to change his diet to regular.
--- NOTE | 2020-09-23 19:10 | NUR ---
NURSE HAND-OFF: Important Events on Shift:Right Axillary D/I dressing changed by MD Miller; Blood culture one bottle Gram positive Cocci in cluster and reported to MD Miller; Patient Status: [stable Diet: [Regular] Pending Orders: [Vanco-Trough 0400] Pending Results/Labs:[] Pending MD notification:[] Latest Vital Signs: Temperature 97.4 , Pulse 60 , B/P 113 /60 , Respiratory Rate 20 , O2 SAT 99 , Room Air, O2 Flow Rate . Vital Sign Comment: [] Latest Malone Fall Score: 65 Fall Risk: High Risk Safety Measures: Call light Within Reach, Bed Alarm Zone 1, Side Rails Side Rails x2, Bed position Low and Locked. Fall Precautions: Yellow Socks Yellow Gown Door Sign Patient Fall Education Report given to [JASWINDER Murry].
--- NOTE | 2020-09-23 19:14 | NUR ---
NURSE NOTES: Received report from JASWINDER Kearns. AAO x 4, on RA. Denies pain or discomfort. Dressing on R axillary d/i/c. IV site intact and patent. No labored breathing. Bed locked, lowest position, alarm on, side rails up, call light within reach. Will continue to monitor.
[2020-09-23 20:00] VITALS: BP 110/63
[2020-09-23] MEDS: Tamsulosin 0.4mg cap ORAL SCH (20:17)
[2020-09-24] VITALS: BP 134/67
[2020-09-24] MEDS: Vancomycin 750 MG in NS 275 ML IVPB SCH ×2 (01:01→13:07)
[2020-09-24 04:00] VITALS: BP 130/89
--- NOTE | 2020-09-24 06:26 | NUR ---
NURSE HAND-OFF: Important Events on Shift:none Patient Status: stable Diet: Pending Orders: Pending Results/Labs: Pending MD notification: Latest Vital Signs: Temperature 97.4 , Pulse 68 , B/P 130 /89 , Respiratory Rate 18 , O2 SAT 96 , Room Air, O2 Flow Rate . Vital Sign Comment: Latest Malone Fall Score: 65 Fall Risk: High Risk Safety Measures: Call light Within Reach, Bed Alarm Zone 1, Side Rails Side Rails x2, Bed position Low and Locked. Fall Precautions: Yellow Socks Yellow Gown Door Sign Patient Fall Education Addendum: 09/24/20 at 0712 by JOSE CARROLL RN RN Report given to Urmila
--- NOTE | 2020-09-24 07:33 | NUR ---
NURSE NOTES: Patient awake, alert x4; on room air, no sing of distress and shortness of breath; no sing of chest pain; IV Left-Wrist 22 flushes well; Right Axillary dressing wet, will change it as ordered; side rails up x2, breaks engaged, bed at lowest position, call light within reach; will keep monitoring.
[2020-09-24 08:00] VITALS: BP 124/59
[2020-09-24 08:57] LABS: HEMATOCRIT 40.7 % (42.0-52.0); HEMOGLOBIN 13.4 G/DL (14.2-18.0); MEAN CORPUSCULAR VOLUME 94 FL (80-99); PLATELET COUNT 88 K/UL (150-450); RED BLOOD COUNT 4.33 M/UL (4.70-6.10); RED CELL DISTRIBUTION WIDTH 15.1 % (11.6-14.8); WHITE BLOOD COUNT 4.7 K/UL (4.8-10.8)
[2020-09-24 09:34] LABS: ALANINE AMINOTRANSFERASE 44 U/L (12-78); ALBUMIN 2.7 G/DL (3.4-5.0); ALKALINE PHOSPHATASE 149 U/L (46-116); ANION GAP 7 mmol/L (5-15); ASPARTATE AMINO TRANSFERASE 35 U/L (15-37); BILIRUBIN,TOTAL 0.9 MG/DL (0.2-1.0); BLOOD UREA NITROGEN 26 mg/dL (7-18); CALCIUM 8.5 MG/DL (8.5-10.1); CARBON DIOXIDE 25 MMOL/L (21-32); CHLORIDE 110 MMOL/L (98-107); CREATININE 0.8 MG/DL (0.55-1.30); POTASSIUM 4.7 MMOL/L (3.5-5.1); SODIUM 142 MMOL/L (136-145)
[2020-09-24] MEDS: Docusate 100mg cap ORAL SCH ×2 (09:52→17:54)
[2020-09-24] MEDS: Cefepime HCl 2 GM in D5W 55 ML IVPB SCH (09:53)
--- NOTE | 2020-09-24 11:02 | Infectious Diseases Prog Note ---
"Assessment/Plan Assessment/Plan antibiotics : vancomycin iv, cefepime A 1. gram positive sepsis 2. bilateral leg cellulitis 3. right arm cellulitis | ecchymoses 4. CLL 5. history of skin cancer s/p craniotomy | flap P 1. continue iv vancomycin 2. d/c cefepime 3. will follow up cultures Subjective Constitutional: Denies: fever, chills Respiratory: Denies: shortness of breath, dry cough Gastrointestinal/Abdominal: Denies: nausea, vomiting, diarrhea Musculoskeletal: Reports: pain Allergies: Uncoded Allergies: Silk tape (Allergy, Mild, Hives, 09/22/20) Objective Last 24 Hour Vital Signs Date Time Temp Pulse Resp B/P (MAP) Pulse Ox O2 Delivery O2 Flow Rate FiO2 09/24/20 09:00 Room Air 09/24/20 08:00 97.6 78 20 124/59 (80) 95 09/24/20 04:00 97.4 68 18 130/89 (103) 96 09/24/20 00:00 97.5 65 20 134/67 (89) 98 09/23/20 20:35 Room Air 09/23/20 20:00 97.5 66 20 110/63 (79) 98 09/23/20 16:00 97.4 60 20 113/60 (77) 99 09/23/20 12:00 97.9 67 21 134/64 (87) 99 Height (Feet): 5 Height (Inches): 4.00 Weight (Pounds): 183 Respiratory/Chest: lungs clear Cardiovascular: normal rate, regular rhythm, no gallop/murmur Abdomen: soft, non tender Extremities: other - bilateral leg erythema decreased, right arm erythema, ec chymoses Microbiology Date/Time Source Procedure Growth Status 09/22/20 12:46 Blood Blood Culture - Preliminary NO GROWTH AFTER 24 HOURS Resulted 09/22/20 12:40 Blood Blood Culture - Preliminary Resulted Laboratory Tests Test 09/24/20 07:38 White Blood Count 4.7 K/UL (4.8-10.8) L Red Blood Count 4.33 M/UL (4.70-6.10) L Hemoglobin 13.4 G/DL (14.2-18.0) L Hematocrit 40.7 % (42.0-52.0) L Mean Corpuscular Volume 94 FL (80-99) Mean Corpuscular Hemoglobin 30.8 PG (27.0-31.0) Mean Corpuscular Hemoglobin Concent 32.8 G/DL (32.0-36.0) Red Cell Distribution Width 15.1 % (11.6-14.8) H Platelet Count 88 K/UL (150-450) L Mean Platelet Volume 8.9 FL (6.5-10.1) Neutrophils (%) (Auto) % (45.0-75.0) Lymphocytes (%) (Auto) % (20.0-45.0) Monocytes (%) (Auto) % (1.0-10.0) Eosinophils (%) (Auto) % (0.0-3.0) Basophils (%) (Auto) % (0.0-2.0) Differential Total Cells Counted 100 Neutrophils % (Manual) 61 % (45-75) Lymphocytes % (Manual) 32 % (20-45) Monocytes % (Manual) 6 % (1-10) Eosinophils % (Manual) 1 % (0-3) Basophils % (Manual) 0 % (0-2) Band Neutrophils 0 % (0-8) Platelet Estimate Decreased L Platelet Morphology Normal Red Blood Cell Morphology Normal Sodium Level 142 MMOL/L (136-145) Potassium Level 4.7 MMOL/L (3.5-5.1) Chloride Level 110 MMOL/L (98-107) H Carbon Dioxide Level 25 MMOL/L (21-32) Anion Gap 7 mmol/L (5-15) Blood Urea Nitrogen 26 mg/dL (7-18) H Creatinine 0.8 MG/DL (0.55-1.30) Estimat Glomerular Filtration Rate > 60 mL/min (>60) Glucose Level 111 MG/DL (74-106) H Calcium Level 8.5 MG/DL (8.5-10.1) Total Bilirubin 0.9 MG/DL (0.2-1.0) Aspartate Amino Transf (AST/SGOT) 35 U/L (15-37) Alanine Aminotransferase (ALT/SGPT) 44 U/L (12-78) Alkaline Phosphatase 149 U/L (46-116) H Total Protein 5.5 G/DL (6.4-8.2) L Albumin 2.7 G/DL (3.4-5.0) L Globulin 2.8 g/dL Albumin/Globulin Ratio 1.0 (1.0-2.7) Current Medications Medications (Trade) Dose Ordered Sig/Mary Route PRN Reason Start Time Stop Time Status Last Admin Dose Admin Acetaminophen (Tylenol) 650 mg Q4H PRN ORAL Mild Pain (Pain Scale 1-3) 09/22/20 16:00 10/22/20 15:59 Acetaminophen/ Hydrocodone Bitart ([place] 5/325) 1 tab Q4H PRN ORAL Moderate Pain (Pain Scale 4-6) 09/22/20 18:15 09/29/20 18:14 Cefepime HCl 2 gm/ Dextrose 55 ml @ 110 mls/hr EVERY 12 HOURS IVPB 09/23/20 13:30 09/30/20 13:29 09/24/20 09:53 Diazepam (Valium) 5 mg HSPRN PRN ORAL Insomnia 09/22/20 16:00 09/29/20 15:59 Docusate Sodium (Colace) 100 mg TWICE A DAY ORAL 09/23/20 09:00 10/23/20 08:59 09/23/20 17:26 Fluoxetine HCl (PROzac) 40 mg DAILY ORAL 09/24/20 10:00 10/24/20 09:59 09/24/20 09:52 Morphine Sulfate (Morphine Sulfate) 1 mg Q6H PRN IVP pain 7-10 09/22/20 16:00 09/29/20 15:59 09/23/20 04:26 Tamsulosin HCl (Flomax) 0.4 mg BEDTIME ORAL 09/22/20 21:00 10/22/20 20:59 09/23/20 20:17 Vancomycin HCl (Vanco pharmacy to dose) 1 ea DAILY PRN MISC Per rx protocol 09/23/20 12:30 10/23/20 12:29 Vancomycin HCl 750 mg/Sodium Chloride 275 ml @ 183.333 mls/hr Q12H IVPB 09/24/20 02:00 09/29/20 01:59 09/24/20 01:01 Lucinda Gray MD Sep 24, 2020 11:02"
--- NOTE | 2020-09-24 11:19 | NUR ---
CASE MANAGEMENT:REVIEW 09/24/20 SI: SEPSIS. BLE CELLULITIS. RT ARM CELLULITIS H/O CLL 97.6 78 20 124/59 95% ON RA H/H-13.4/40.7 PLT-88 IS: IV VANCOMYCIN Q12 IV CEFEPIME Q12 FLOMAX PO QHS : MED/SURG STATUS DCP: FROM HOME? Addendum: 09/24/20 at 1124 by LEXUS ASHLEYN BLOOD CX PRELIM(+) [facility]
--- NOTE | 2020-09-24 11:35 | General Progress Note ---
Subjective Allergies: Uncoded Allergies: Silk tape (Allergy, Mild, Hives, 09/22/20) Subjective in bed weakness better pt/ot on the case walking with walker unsteadiy gait Objective Last 24 Hour Vital Signs Date Time Temp Pulse Resp B/P (MAP) Pulse Ox O2 Delivery O2 Flow Rate FiO2 09/24/20 09:00 Room Air 09/24/20 08:00 97.6 78 20 124/59 (80) 95 09/24/20 04:00 97.4 68 18 130/89 (103) 96 09/24/20 00:00 97.5 65 20 134/67 (89) 98 09/23/20 20:35 Room Air 09/23/20 20:00 97.5 66 20 110/63 (79) 98 09/23/20 16:00 97.4 60 20 113/60 (77) 99 09/23/20 12:00 97.9 67 21 134/64 (87) 99 Intake and Output 09/23/20 09/24/20 19:00 07:00 Intake Total 1127.416 ml Output Total 350 ml 900 ml Balance 777.416 ml -900 ml Intake Oral 650 ml IV Total 477.416 ml Output Urine Total 350 ml 900 ml Laboratory Tests 09/24/20 07:38: White Blood Count 4.7L, Red Blood Count 4.33L, Hemoglobin 13.4L, Hematocrit 40.7L, Mean Corpuscular Volume 94, Mean Corpuscular Hemoglobin 30.8, Mean Corpuscular Hemoglobin Concent 32.8, Red Cell Distribution Width 15.1H, Platelet Count 88L, Mean Platelet Volume 8.9, Neutrophils (%) (Auto) , Lymphocytes (%) (Auto) , Monocytes (%) (Auto) , Eosinophils (%) (Auto) , Basophils (%) (Auto) , Differential Total Cells Counted 100, Neutrophils % (Manual) 61, Lymphocytes % (Manual) 32, Monocytes % (Manual) 6, Eosinophils % (Manual) 1, Basophils % (Manual) 0, Band Neutrophils 0, Platelet Estimate DecreasedL, Platelet M orphology Normal, Red Blood Cell Morphology Normal, Sodium Level 142, Potassium Level 4.7, Chloride Level 110H, Carbon Dioxide Level 25, Anion Gap 7, Blood Urea Nitrogen 26H, Creatinine 0.8, Estimat Glomerular Filtration Rate > 60, Glucose Level 111H, Calcium Level 8.5, Total Bilirubin 0.9, Aspartate Amino Transf (AST/SGOT) 35, Alanine Aminotransferase (ALT/SGPT) 44, Alkaline Phosphatase 149H , Total Protein 5.5L, Albumin 2.7L, Globulin 2.8, Albumin/Globulin Ratio 1.0 Height (Feet): 5 Height (Inches): 4.00 Weight (Pounds): 183 General Appearance: alert EENT: PERRL/EOMI Neck: supple Cardiovascular: regular rhythm Respiratory/Chest: normal breath sounds Abdomen: non tender, soft Objective doing ok Assessment/Plan Status: doing well Assessment/Plan: cellilitis rt axilla infected rt axillary wound fall unseady gait weakness dehydration iv abx surgery eval pt/ot Taz Mills MD Sep 24, 2020 11:35
[2020-09-24 12:00] VITALS: BP 138/73
--- NOTE | 2020-09-24 13:18 | Surgery Progress Note ---
Surgery Progress Note Subjective Symptoms: improved, tolerating diet, passing flatus Additional Comments id input appreciated on vanco now Objective Last 24 Hour Vital Signs Date Time Temp Pulse Resp B/P (MAP) Pulse Ox O2 Delivery O2 Flow Rate FiO2 09/24/20 12:00 97.5 68 19 138/73 (94) 95 09/24/20 09:00 Room Air 09/24/20 08:00 97.6 78 20 124/59 (80) 95 09/24/20 04:00 97.4 68 18 130/89 (103) 96 09/24/20 00:00 97.5 65 20 134/67 (89) 98 09/23/20 20:35 Room Air 09/23/20 20:00 97.5 66 20 110/63 (79) 98 09/23/20 16:00 97.4 60 20 113/60 (77) 99 I&O Intake and Output 09/23/20 09/24/20 19:00 07:00 Intake Total 1127.416 ml Output Total 350 ml 900 ml Balance 777.416 ml -900 ml Intake Oral 650 ml IV Total 477.416 ml Output Urine Total 350 ml 900 ml Dressing: dry Wound: clean Cardiovascular: RSR Respiratory: clear Abdomen: soft, flat, non-tender, present bowel sounds Extremities: edema, no tenderness, no cyanosis Laboratory Tests Test 09/24/20 07:38 White Blood Count 4.7 K/UL (4.8-10.8) L Red Blood Count 4.33 M/UL (4.70-6.10) L Hemoglobin 13.4 G/DL (14.2-18.0) L Hematocrit 40.7 % (42.0-52.0) L Mean Corpuscular Volume 94 FL (80-99) Mean Corpuscular Hemoglobin 30.8 PG (27.0-31.0) Mean Corpuscular Hemoglobin Concent 32.8 G/DL (32.0-36.0) Red Cell Distribution Width 15.1 % (11.6-14.8) H Platelet Count 88 K/UL (150-450) L Mean Platelet Volume 8.9 FL (6.5-10.1) Neutrophils (%) (Auto) % (45.0-75.0) Lymphocytes (%) (Auto) % (20.0-45.0) Monocytes (%) (Auto) % (1.0-10.0) Eosinophils (%) (Auto) % (0.0-3.0) Basophils (%) (Auto) % (0.0-2.0) Differential Total Cells Counted 100 Neutrophils % (Manual) 61 % (45-75) Lymphocytes % (Manual) 32 % (20-45) Monocytes % (Manual) 6 % (1-10) Eosinophils % (Manual) 1 % (0-3) Basophils % (Manual) 0 % (0-2) Band Neutrophils 0 % (0-8) Platelet Estimate Decreased L Platelet Morphology Normal Red Blood Cell Morphology Normal Sodium Level 142 MMOL/L (136-145) Potassium Level 4.7 MMOL/L (3.5-5.1) Chloride Level 110 MMOL/L (98-107) H Carbon Dioxide Level 25 MMOL/L (21-32) Anion Gap 7 mmol/L (5-15) Blood Urea Nitrogen 26 mg/dL (7-18) H Creatinine 0.8 MG/DL (0.55-1.30) Estimat Glomerular Filtration Rate > 60 mL/min (>60) Glucose Level 111 MG/DL (74-106) H Calcium Level 8.5 MG/DL (8.5-10.1) Total Bilirubin 0.9 MG/DL (0.2-1.0) Aspartate Amino Transf (AST/SGOT) 35 U/L (15-37) Alanine Aminotransferase (ALT/SGPT) 44 U/L (12-78) Alkaline Phosphatase 149 U/L (46-116) H Total Protein 5.5 G/DL (6.4-8.2) L Albumin 2.7 G/DL (3.4-5.0) L Globulin 2.8 g/dL Albumin/Globulin Ratio 1.0 (1.0-2.7) Plan Problems: (1) Subcutaneous air (2) Laceration of axilla Assessment & Plan: 74-year-old male right axilla laceration sustained at home after an injury with a kitchen cabinet wooden fall as he was trying to grab something. No nausea vomiting fever chills. Labs okay no leukocytosis no shift. Laceration was washed out thoroughly in emergency department by ED physician and closed primarily with nylon sutures interrupted. Wound evaluated bedside there are some bruising noted to the arm some superficial laceration on the lateral aspect of the medial axilla on the right there is a approximately 8 to 10 cm laceration which is now closed. No drainage no pus no cellulitis no erythema no warmth. Tender on palpation otherwise benign looking. Subcutaneous edema likely from the trauma though I do agree with the radiologist is fairly extensive for a simple fall. Patient initiated on IV antibiotics and recommend admission for monitoring over the course of 24 hours. We will keep a close eye on the wound. Personally wash the wound and place dressings for the patient the bedside after evaluation. We will continue monitoring and discharge when safe. Outpatient follow-up in office for suture removal planned. Thank you Labs okay exam stable dressing is being changed. Blood cultures noted infectious disease input pending bacteremia on vanco as per ID d/c planning (3) Skin tear (4) Multiple injuries due to trauma Torsten Miller Sep 24, 2020 13:18
[2020-09-24 16:00] VITALS: BP 152/65
--- NOTE | 2020-09-24 18:42 | NUR ---
NURSE HAND-OFF: Important Events on Shift:Patient cleard by surgery; R-Axillary D/I changed by MD Davis; antibiotic and other medications administered as scheduled Patient Status: Diet: Pending Orders: Pending Results/Labs: Pending MD notification: Latest Vital Signs: Temperature 97.3 , Pulse 72 , B/P 152 /65 , Respiratory Rate 19 , O2 SAT 95 , Room Air, O2 Flow Rate . Vital Sign Comment: Latest Malone Fall Score: 65 Fall Risk: High Risk Safety Measures: Call light Within Reach, Bed Alarm Zone 1, Side Rails Side Rails x2, Bed position Low and Locked. Fall Precautions: Yellow Socks Yellow Gown Door Sign Patient Fall Education Report given to .
--- NOTE | 2020-09-24 18:54 | NUR ---
NURSE HAND-OFF: Important Events on Shift: Patient Status: Diet: Pending Orders: Pending Results/Labs: Pending MD notification: Latest Vital Signs: Temperature 97.3 , Pulse 72 , B/P 152 /65 , Respiratory Rate 19 , O2 SAT 95 , Room Air, O2 Flow Rate . Vital Sign Comment: Latest Malone Fall Score: 65 Fall Risk: High Risk Safety Measures: Call light Within Reach, Bed Alarm Zone 1, Side Rails Side Rails x2, Bed position Low and Locked. Fall Precautions: Yellow Socks Yellow Gown Door Sign Patient Fall Education Report given to [JeanmarieRN; endorsed to the incoming nurse that patient's phone is charging at the nurse station and to give to patient after fully charge].
[2020-09-24 20:00] VITALS: BP 124/60
[2020-09-24] MEDS: Tamsulosin 0.4mg cap ORAL SCH (20:08)
[2020-09-25] VITALS: BP 128/68
[2020-09-25] MEDS: Vancomycin 750 MG in NS 275 ML IVPB SCH (02:07)
[2020-09-25 04:00] VITALS: BP 131/73
--- NOTE | 2020-09-25 06:17 | NUR ---
NURSE HAND-OFF: Important Events on Shift:abx Patient Status: stable Diet: reg Pending Orders: [] Pending Results/Labs:[] Pending MD notification:[] Latest Vital Signs: Temperature 97.2 , Pulse 67 , B/P 131 /73 , Respiratory Rate 18 , O2 SAT 95 , Room Air, O2 Flow Rate . Vital Sign Comment: [] Latest Malone Fall Score: 65 Fall Risk: High Risk Safety Measures: Call light Within Reach, Bed Alarm Zone 1, Side Rails Side Rails x2, Bed position Low and Locked. Fall Precautions: Yellow Socks Yellow Gown Door Sign Patient Fall Education Addendum: 09/25/20 at 0729 by JOSE CARROLL RN RN Report given to Sagar
--- NOTE | 2020-09-25 07:30 | NUR ---
NURSE NOTES: Patient sitting in bed eating breakfast. No complain of pain or distress at this time. Surgical site intact and dry. IV dressing intact and dry. Bed lowest position and side rails up. Call light within reach. Will continue to monitor.
[2020-09-25 08:00] VITALS: BP 152/66
[2020-09-25] MEDS: Docusate 100mg cap ORAL SCH (08:50)
[2020-09-25 12:00] VITALS: BP 123/65
--- NOTE | 2020-09-25 12:15 | NUR ---
NURSE NOTES: Spoke to regarding patient and Patient cleared to discharge ID standpoint. No antibiotic needed. Order noted and carried out.
--- NOTE | 2020-09-25 12:17 | NUR ---
NURSE NOTES: Spoke to regarding patient and new order received. Order read back and carried out.
--- NOTE | 2020-09-25 12:54 | General Progress Note ---
Subjective Allergies: Uncoded Allergies: Silk tape (Allergy, Mild, Hives, 09/22/20) Subjective in bed weakness better pt/ot on the case walking with walker unsteadiy gait Objective Last 24 Hour Vital Signs Date Time Temp Pulse Resp B/P (MAP) Pulse Ox O2 Delivery O2 Flow Rate FiO2 09/25/20 12:00 97.1 72 20 123/65 (84) 96 09/25/20 09:00 Room Air 09/25/20 08:00 97.3 68 20 152/66 (94) 97 09/25/20 04:00 97.2 67 18 131/73 (92) 95 09/25/20 00:00 97.4 68 20 128/68 (88) 92 09/24/20 21:00 Room Air 09/24/20 20:00 97.2 69 20 124/60 (81) 93 09/24/20 16:00 97.3 72 19 152/65 (94) 95 Intake and Output 09/24/20 09/25/20 19:00 07:00 Intake Total 1366.666 ml Output Total 600 ml Balance 1366.666 ml -600 ml Intake Oral 1000 ml IV Total 366.666 ml Output Urine Total 600 ml # Voids 5 2 Height (Feet): 5 Height (Inches): 4.00 Weight (Pounds): 183 General Appearance: alert EENT: PERRL/EOMI Neck: supple Cardiovascular: regular rhythm Respiratory/Chest: lungs clear Abdomen: non tender, soft Extremities: other - sutures rt axilla Objective doing ok Assessment/Plan Status: doing well Assessment/Plan: cellilitis rt axilla infected rt axillary wound fall unseady gait weakness dehydration iv abx surgery eval pt/ot Taz Mills MD Sep 25, 2020 12:54
--- NOTE | 2020-09-25 12:55 | General Progress Note ---
Subjective Allergies: Uncoded Allergies: Silk tape (Allergy, Mild, Hives, 09/22/20) Subjective in bed weakness better pt/ot on the case walking with walker unsteadiy gait Objective Last 24 Hour Vital Signs Date Time Temp Pulse Resp B/P (MAP) Pulse Ox O2 Delivery O2 Flow Rate FiO2 09/25/20 12:00 97.1 72 20 123/65 (84) 96 09/25/20 09:00 Room Air 09/25/20 08:00 97.3 68 20 152/66 (94) 97 09/25/20 04:00 97.2 67 18 131/73 (92) 95 09/25/20 00:00 97.4 68 20 128/68 (88) 92 09/24/20 21:00 Room Air 09/24/20 20:00 97.2 69 20 124/60 (81) 93 09/24/20 16:00 97.3 72 19 152/65 (94) 95 Intake and Output 0 09/24/20 09/25/20 19:00 07:00 Intake Total 1366.666 ml Output Total 600 ml Balance 1366.666 ml -600 ml Intake Oral 1000 ml IV Total 366.666 ml Output Urine Total 600 ml # Voids 5 2 Height (Feet): 5 Height (Inches): 4.00 Weight (Pounds): 183 Objective doing ok Assessment/Plan Status: doing well Assessment/Plan: cellilitis rt axilla resolved infected rt axillary wound better fall unseady gait weakness dehydration dc iv abx surgery eval pt/ot dc plan home with home josé antonio thompson in office Taz Mills MD Sep 25, 2020 12:55
--- NOTE | 2020-09-25 13:22 | Surgery Progress Note ---
Surgery Progress Note Subjective Symptoms: improved, pain absent, tolerating diet, voiding well, passing flatus, BM Objective Last 24 Hour Vital Signs Date Time Temp Pulse Resp B/P (MAP) Pulse Ox O2 Delivery O2 Flow Rate FiO2 09/25/20 12:00 97.1 72 20 123/65 (84) 96 09/25/20 09:00 Room Air 09/25/20 08:00 97.3 68 20 152/66 (94) 97 09/25/20 04:00 97.2 67 18 131/73 (92) 95 09/25/20 00:00 97.4 68 20 128/68 (88) 92 09/24/20 21:00 Room Air 09/24/20 20:00 97.2 69 20 124/60 (81) 93 09/24/20 16:00 97.3 72 19 152/65 (94) 95 I&O Intake and Output 09/24/20 09/25/20 19:00 07:00 Intake Total 1366.666 ml Output Total 600 ml Balance 1366.666 ml -600 ml Intake Oral 1000 ml IV Total 366.666 ml Output Urine Total 600 ml # Voids 5 2 Dressing: dry Wound: clean Cardiovascular: RSR Respiratory: clear Abdomen: soft, flat, non-tender, present bowel sounds, non-distended Extremities: edema, no tenderness, no cyanosis Plan Problems: (1) Subcutaneous air (2) Laceration of axilla Assessment & Plan: 74-year-old male right axilla laceration sustained at home after an injury with a kitchen cabinet wooden fall as he was trying to grab something. No nausea vomiting fever chills. Labs okay no leukocytosis no shift. Laceration was washed out thoroughly in emergency department by ED physician and closed primarily with nylon sutures interrupted. Wound evaluated bedside there are some bruising noted to the arm some superficial laceration on the lateral aspect of the medial axilla on the right there is a approximately 8 to 10 cm laceration which is now closed. No drainage no pus no cellulitis no erythema no warmth. Tender on palpation otherwise benign looking. Subcutaneous edema likely from the trauma though I do agree with the radiologist is fairly extensive for a simple fall. Patient initiated on IV antibiotics and recommend admission for monitoring over the course of 24 hours. We will keep a close eye on the wound. Personally wash the wound and place dressings for the patient the bedside after evaluation. We will continue monitoring and discharge when safe. Outpatient follow-up in office for suture removal planned. Thank you Labs okay exam stable dressing is being changed. Blood cultures noted infectious disease input pending bacteremia on vanco as per ID d/c planning d/c home home health f/u next week in office for suture removal thank you (3) Skin tear (4) Multiple injuries due to trauma Torsten Miller Sep 25, 2020 13:22
--- NOTE | 2020-09-25 14:30 | NUR ---
NURSE NOTES: Patient discharged in stable condition. Discharge instruction given to patient and verbalized understanding. Belonging given to patient. Instructed to follow up with MD and verbalized understanding. Dressing changed as ordered and extra supplies given to patient. IV and ID removed. Brought down to private car by wheelchair.
[2020-09-25] MEDS ORDERED: Vancomycin 1gm/D5W 275ml IVPB SCH ×2 (15:00)
--- NOTE | 2020-09-25 15:27 | NUR ---
*-*DISCHARGE PLANNING*- PATIENT HAS BEEN REFERRED TO: ON LICENSE OF [facility] P:[phone] S/W CARLA, WILL SERVICE PATIENT UPON DISCHARGE PLANNING.
--- NOTE | 2020-09-28 10:52 | Discharge Summary ---
Discharge Summary Discharge Summary _ Date of admission: 09/22/2020 Date of discharge: 09/25/[address] Mills History of Present Illness and Brief Hospital Course Mr. Bell is a 74-year-old male who presented to the ED for evaluation of shoulder and arm injury while reaching for something the day prior to presentation. Patient reported that the kitchen cabinet wood fell onto him and injured his arm and shoulder. His tetanus status was unknown. 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 There was a significant amount of subcutaneous air in the arm and in the chest which were not explainable by the laceration alone. This was concerning for bacterial infection. Wound was irrigated and partially closed. Broad-spectrum antibiotics were given. Labs revealed no leukocytosis, stable H&H and normal electrolytes. Patient was admitted to the hospital for further management. Patient was given Tdap. Patient was noted to have some bruising to the arm with some superficial laceration on the lateral aspect of the medial axilla on the right. There was an approximately 8 to 10 cm laceration which was closed. No drainage, pus, erythema, or warmth were noted. Patient's blood cultures were positive with staph. Patient was started on antibiotics. A repeat blood culture was negative. Patient was medically stable for discharge and was discharged home with home health on 09/25/2020. Patient was instructed to follow-up with Dr. Miller in his office as an outpatient. Consultants: Infectious disease Dr. Gray Surgery Dr. Miller Discharge Condition Improved and stable Discharge Activity Advance as tolerated Final diagnoses Gram-positive sepsis Bilateral leg cellulitis Right arm cellulitis Dehydration Laceration of axilla Subcutaneous air I have been assigned to dictate discharge summary for this account. I was not involved in the patient's management Asad Dugan Sep 28, 2020 10:52
== END 2020-09-25 12:30 | disposition home health service (06) | DRG 872 ==
LOC: EMR 10:33 → 4E 13:06 → EDBEDREQ 13:46 → 4E 09-24 18:27
PROC: 0HQBXZZ Repair Right Upper Arm Skin, External Approach (ICD-10-PCS; principal; 2020-09-22)
DX: A41.9 Sepsis, unspecified organism (principal); T79.7XXA Traumatic subcutaneous emphysema, initial encounter; L03.111 Cellulitis of right axilla; L03.116 Cellulitis of left lower limb; L03.115 Cellulitis of right lower limb; S41.111A Laceration without foreign body of right upper arm, initial encounter; S40.021A Contusion of right upper arm, initial encounter; W22.8XXA Striking against or struck by other objects, initial encounter; Y92.000 Kitchen of unspecified non-institutional (private) residence as the place of occurrence of the external cause; N40.0 Benign prostatic hyperplasia without lower urinary tract symptoms; Z23 Encounter for immunization; Z87.891 Personal history of nicotine dependence; Z85.6 Personal history of leukemia; M19.011 Primary osteoarthritis, right shoulder; E86.0 Dehydration
CPT/HCPCS: 36415; 80053; 80202; 82248; 83605; 85007; 85025; 85610; 85651; 85730; 86140; 86850; 86900; 86901; 87040; 87181; 90471; 90715; 96361; 96365; 96367; 99285; J7030